=== PATIENT | female | born 1945 | race Caucasian/White ===

== ENCOUNTER 2023-03-15 10:18 | Day surgery (SDC) | payer MEDICARE, BC, SELFPAY ==
[2023-03-15] MEDS: TETRACAINE 0.5% OPHTH 1 DROP EYE-LEFT (10:55)
[2023-03-15] MEDS: KETOROLAC OPHTH 0.5% 1 DROP EYE-LEFT ×3 (11:01→11:21)
[2023-03-15 11:06] VITALS: BP 191/90; PULSE 68; RESP 16; TEMP 36.5; O2SAT 96
[2023-03-15] MEDS: SODIUM CHLORIDE 0.9 % (FLUSH) 10 ML SYRINGE IVF (11:19)
[2023-03-15 11:20] VITALS: BMI 36.6
[2023-03-15] MEDS: BALANCED SALT IRRIG SOLN 15 ML EYE-LEFT (11:31)
--- NOTE | 2023-03-15 11:47 | W.ANESCHARGE ---
Anesthesia Charges Start Date/Time Anesthesia Start Date: 03/15/23 Anesthesia Start Time: 12:02 Stop Date/Time Anesthesia Stop Date: 03/15/23 Anesthesia Stop Time: 12:25 Summary Extremes of Age - Over 70 or under 1: MDA
[2023-03-15] MEDS: TETRACAINE 0.5% OPHTH 2 DROP EYE-LEFT (12:07)
--- NOTE | 2023-03-15 12:16 | P.ANES_ITS ---
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
[2023-03-15] MEDS: BRIMONIDINE TARTRATE 0.2% OPHTH 1 DROP EYE-LEFT (12:17)
--- NOTE | 2023-03-15 12:23 | P.PCN_ITS ---
Procedure Note Date Seen: 03/15/23 Date of procedure: 03/15/23 Will [facility] bill your pro fee for this procedure?: No Pre-op diagnosis: combined form of cataract left eye Procedure Description: NAME OF PROCEDURE Kelman phacoemulsification, left eye, with posterior chamber lens implant. PREOPERATIVE DIAGNOSIS Nuclear sclerotic cortical combined cataract, left eye. POSTOPERATIVE DIAGNOSIS Nuclear sclerotic cortical combined cataract, left eye. INDICATIONS FOR PROCEDURE The patient has noted that his vision in the left eye is failing. Severity 8/10. Unable to correct with glasses/contact lenses; has disabling night glare when driving, difficulty reading. Because of this, the patient elected to proceed with surgical repair. I have explained the risks, benefits, alternative treatments to the patient including possible loss of the eye under correction, over correction, need for more surgery. The patient understands, accepts, and elects to proceed with surgical repair. PROCEDURE The left eye was dilated with a combination 1% Mydriacyl, 2.5% phenylephrine with topical Ocufen and Vigamox applied to the corneal surface. The patient was brought to the main operating room where under IV sedation, after pausing to identify the correct patient, correct intraoperative lens, power 18.0 diopters, the left eye was prepped and draped in usual sterile fashion for intraocular surgery. A lid speculum was placed and a paracentesis created at 6 o'clock. The chamber was filled with OVD and entered temporally with a keratome. A continuous tear capsulotomy was performed. The nucleus was hydrodissected and emulsified with local anesthetic and emulsified in a chop technique in the capsular bag. Residual cortex was cleaned. The capsule was clear. At this point, ZCBOO 18.0 diopter posterior chamber lens implant was injected into the capsular bag and was well centered. Residual OVD was cleaned from behind the implant from the capsular bag. The incision hydrated and noted to be leak free. Topical Alphagan, pilocarpine, and Vigamox were applied to the corneal surface and the patient returned to recovery in good condition having tolerated the procedure well. CONDITION ON DISCHARGE Satisfactory.
[2023-03-15 12:39] VITALS: BP 157/78; PULSE 62; RESP 16; TEMP 36.8; O2SAT 97
== END 2023-03-15 12:49 | disposition home or self-care (01) ==
PROVIDERS: PCP Family Medicine; Visit Provider Ophthalmology
PROC: (CPT 66984; principal; 2023-03-15 12:00)
DX: H25.12 Age-related nuclear cataract, left eye (principal)
CPT/HCPCS: 66984; 00142; 99100; A9270; J2250; J3010; S0020; V2632

== ENCOUNTER 2023-04-12 12:59 | Day surgery (SDC) | payer MEDICARE, BC, OTHER, SELFPAY ==
[2023-04-12 13:18] VITALS: BMI 36.6
[2023-04-12] MEDS: TETRACAINE 0.5% OPHTH 1 DROP EYE-RIGHT (13:22)
[2023-04-12] MEDS: KETOROLAC OPHTH 0.5% 1 DROP EYE-RIGHT ×3 (13:25→13:45)
[2023-04-12] MEDS: SODIUM CHLORIDE 0.9 % (FLUSH) 10 ML SYRINGE IVF (13:30)
[2023-04-12 13:36] VITALS: BP 180/80; PULSE 60; RESP 16; TEMP 36.7; O2SAT 94
[2023-04-12] MEDS: TETRACAINE 0.5% OPHTH 2 DROP EYE-RIGHT (15:35)
[2023-04-12] MEDS: BALANCED SALT IRRIG SOLN 15 ML EYE-RIGHT (15:39)
--- NOTE | 2023-04-12 15:42 | W.ANESCHARGE ---
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
[2023-04-12] MEDS: BRIMONIDINE TARTRATE 0.2% OPHTH 1 DROP EYE-RIGHT (15:56)
--- NOTE | 2023-04-12 15:59 | P.PCN_ITS ---
Procedure Note Date Seen: 04/12/23 Will [facility] bill your pro fee for this procedure?: No Procedure: kelman phacoemulsification right eye with posterior chamber IOL Procedure Description: NAME OF PROCEDURE Kelman phacoemulsification, right eye, with posterior chamber lens implant. PREOPERATIVE DIAGNOSIS Nuclear sclerotic cortical combined cataract, right eye. POSTOPERATIVE DIAGNOSIS Nuclear sclerotic cortical combined cataract, right eye. INDICATIONS FOR PROCEDURE The patient has noted that his vision in the right eye is failing. Severity 7/10. Unable to correct with glasses/contact lenses; has disabling night glare when driving, difficulty reading. Because of this, the patient elected to proceed with surgical repair. I have explained the risks, benefits, alternative treatments to the patient including possible loss of the eye under correction, over correction, need for more surgery. The patient understands, accepts, and elects to proceed with surgical repair. PROCEDURE The right eye was dilated with a combination 1% Mydriacyl, 2.5% phenylephrine with topical Ocufen and Vigamox applied to the corneal surface. The patient was brought to the main operating room where under IV sedation, after pausing to identify the correct patient, correct intraoperative lens, power . The right eye was prepped and draped in usual sterile fashion for intraocular surgery. A lid speculum was placed and a paracentesis created at 12 o'clock. The chamber was filled with OVD and entered temporally with a keratome. A continuous tear capsulotomy was performed. The nucleus was hydrodissected and emulsified with local anesthetic and emulsified in a chop technique in the capsular bag. Residual cortex was cleaned. The capsule was clear. At this point, ZCBOO 19.0 diopter posterior chamber lens implant was injected into the capsular bag. It was noted to come from the injector upside down, so it was flipped over and was well centered. Residual OVD was cleaned from behind the implant from the capsular bag. The incision hydrated and noted to be leak free. Topical Alphagan, pilocarpine, and Vigamox were applied to the corneal surface and the patient returned to recovery in good condition having tolerated the procedure well. CONDITION ON DISCHARGE Satisfactory.
[2023-04-12 16:00] VITALS: BP 174/81; PULSE 69; RESP 16; TEMP 36.6; O2SAT 95
--- NOTE | 2023-04-12 16:09 | W.ANESCHARGE ---
Anesthesia Charges Start Date/Time Anesthesia Start Date: 04/12/23 Anesthesia Start Time: 15:32 Stop Date/Time Anesthesia Stop Date: 04/12/23 Anesthesia Stop Time: 16:02 Summary Extremes of Age - Over 70 or under 1: MDA
== END 2023-04-12 16:21 | disposition home or self-care (01) ==
PROVIDERS: PCP Family Medicine; Visit Provider Ophthalmology
PROC: (CPT 66984; principal; 2023-04-12 14:30)
DX: H25.011 Cortical age-related cataract, right eye (principal)
CPT/HCPCS: 66984; 00142; 99100; A9270; J2250; J3010; S0020; V2632